=== PATIENT | male | born 1945 | race Caucasian/White ===

== ENCOUNTER 2019-04-15 14:35 | Inpatient (IN) | payer OTHER, MEDICAID ==
[~2019-04-15] VITALS: Ht 154.9 cm; Wt 51.3 kg
--- NOTE | 2019-04-15 15:39 | NUR ---
Admit Note: Received patient via gurney from [facility]. Patient in bed resting. Patient denies pain and discomfort. Breathing is even and unlabored with no distress noted on room air. Patient aphasic nods head only. Vitals stable and charted. Patient oriented to room and call light. Will page Dr. Parikh for admit orders.
[2019-04-15 15:55] VITALS: BP_SYST 155
[2019-04-15] MEDS ORDERED: CARB100T13 PO (16:03)
[2019-04-15] MEDS ORDERED: DOCU250C14 PO (16:03)
[2019-04-15] MEDS ORDERED: PHEN30TA41 PO (16:03)
[2019-04-15] MEDS ORDERED: FERR-69 PO (16:03)
[2019-04-15] MEDS ORDERED: ESCI10TA PO (16:03)
[2019-04-15] MEDS ORDERED: TRAZ-218 PO (16:03)
[2019-04-15 16:06] VITALS: BP_SYST 155
--- NOTE | 2019-04-15 16:10 | NUR ---
Dr. Jack at bedside: Dr. Jack at bedside, patient seen and assessed. Awaiting orders.
--- NOTE | 2019-04-15 16:16 | NUR ---
IV INSERTION: Started on RAC 20 gauge. Successful after 1 attempt. Will observe for any signs of infiltration.
--- NOTE | 2019-04-15 16:46 | NUR ---
ST Danni Randle, called Pretty at [phone] and left message
--- NOTE | 2019-04-15 16:48 | NUR ---
CONSULTATION PAGED/CALLED Reason for Consultation: ALOC Person Who was Notified: CELSA Consulting Physician: DR. Chelsey YEBOAH Cooker Pie Filling Specialty: NEUROLOGIST Ordering Physician: DR. STACK
[2019-04-15] MEDS: NACL 0.9% 1,000 ML IV SCH (17:18)
[2019-04-15 17:23] LABS: BASOPHILS % (AUTO) 0.1 % (0.0-2.0); EOSINOPHILS % (AUTO) 0.3 % (0.0-4.0); HEMATOCRIT 29.8 % (36-54); LYMPHOCYTES # (AUTO) 0.4 K/uL (1.0-5.5); LYMPHOCYTES % (AUTO) 2.5 % (20.5-51.5); MEAN CORPUSCULAR HEMOGLOBIN 31 pg (27-31); MEAN CORPUSCULAR HGB CONC 34 % (32-36); MEAN CORPUSCULAR VOLUME 91 fL (79.0-98.0); MONOCYTES # (AUTO) 0.8 K/uL (0.0-1.0); MONOCYTES % (AUTO) 5.9 % (1.7-9.3); NEUTROPHILS # (AUTO) 12.9 K/uL (1.8-7.7); NEUTROPHILS % (AUTO) 91.2 % (40.0-70.0); PLATELET COUNT (AUTO) 276 K/uL (130-430); RED BLOOD CELL COUNT(AUTO) 3.28 MIL/uL (4.2-6.2); RED CELL DISTRIBUTION WIDTH 15.2 % (9.0-15.0); WHITE BLOOD COUNT (AUTO) 14.2 K/uL (4.8-10.8)
--- NOTE | 2019-04-15 17:35 | NUR ---
[place] Jack for home medication reconciliation. Addendum: 04/15/19 at 1802 by Marleen Trejo RN Repaged Dr. Jack for critical lab result.
[2019-04-15 17:39] LABS: ANION GAP 19 (5-15); CALCIUM 9.3 mg/dL (8.4-11.0); CHLORIDE 100 mmol/L (98-107); GLUCOSE 135 mg/dL (70-99); POTASSIUM 5.6 mmol/L (3.5-5.1); SODIUM SERUM 136 mmol/L (136-145)
[2019-04-15 17:40] LABS: INR 1.1 (0.80-1.20); PROTHROMBIN TIME 11.4 SECS (9.5-12.5)
[2019-04-15 17:44] LABS: ALANINE AMINOTRANSFERASE 150 U/L (12-78); ALBUMIN 2.2 g/dL (3.4-4.8); ASPARTATE AMINOTRANSFERASE 60 U/L (10-37); TOTAL BILIRUBIN 0.6 mg/dL (0.0-1.0)
[2019-04-15 17:57] LABS: CREATININE 9.31 mg/dL (0.55-1.30)
[2019-04-15 17:59] LABS: UREA NITROGEN, BLOOD 201 mg/dL (8-21)
--- NOTE | 2019-04-15 18:12 | NUR ---
CONSULTATION PAGED/CALLED Reason for Consultation: ACUTE RENAL FAILURE Person Who was Notified: VALENTIN Consulting Physician: DR. TONG Sign Language Instructor Specialty: LIP OF SHANK CUTTER Ordering Physician: DR. STACK
[2019-04-15] MEDS ORDERED: SODIUM POLYSTYRENE SULFONATE 15 GM/60 ML UDBTL RC ONE ×2 (18:15→19:00)
--- NOTE | 2019-04-15 18:35 | NUR ---
VALDOVINOS CATH: # 16 FR Valdovinos catheter with 10 cc bulb inserted with use of sterile technique. Bulb inflated with 10 cc sterile water. Immediate return of 0 cc urine noted. Bedside drainage bag placed below level of bladder. Awaiting urine output to collect sample to send to lab. Pt tolerated procedure well.
[2019-04-15] MEDS ORDERED: SODIUM POLYSTYRENE SULFONATE 15 GM/60 ML UDBTL ONE (19:03)
--- NOTE | 2019-04-15 19:05 | NUR ---
Closing Note: Patient in bed resting. No signs of pain or discomfort. Breathing is even and unlabored with no distress noted. IV patent and intact running IVF per MD orders, no signs of infiltration noted. Jasso catheter patent and intact. Seizure precautions in place. Safety precautions in place; bed in lowest position, wheels locked, side rails x3, bed alarm activated and call light within reach. All needs met. Will endorse plan of care to NOC, nurse.
[2019-04-15] MEDS ORDERED: NS 500 ML IV SCH (19:15)
--- NOTE | 2019-04-15 19:30 | NUR ---
OPENING NOTE Late entry d/t patient care. Patient is resting in bed w/ eyes closed, no s/sx of distress noted. IV to RAC has IVF, bolus, infusing as oredered. Jasso catheter is clamped, awaiting collection of urine, will be released once collect sample. Patilent is on air mattress, side rails up 3x, seizures pads on two rails. Bed is locked to lowest position, bed alarm on and call light w/in reach.
[2019-04-15 20:00] VITALS: BP_SYST 128
--- NOTE | 2019-04-15 20:50 | NUR ---
urine sample Collected urine sample, will send to lab.
[2019-04-15 21:05] LABS: BILIRUBIN,URINE NEGATIVE (NEGATIVE); BLOOD, URINE 3+ (NEGATIVE); CLARITY/URINE SL CLOUDY (CLEAR); COLOR,URINE YELLOW (YELLOW); GLUCOSE,URINE NEGATIVE (NEGATIVE); KETONES,URINE NEGATIVE (NEGATIVE); LEUKOCYTE ESTERASE ,URINE 2+ (NEGATIVE); NITRITE, URINE POSITIVE (NEGATIVE); PH,URINE 6.5 (5.0-8.0); PROTEIN URINE 2+ (NEGATIVE); UROBILINOGEN,URINE 0.2 (0.2-1.0)
[2019-04-15] MEDS: traZODone HCL 50 MG TABLET (DESYREL) PO SCH (21:10)
--- NOTE | 2019-04-15 21:10 | NUR ---
Bowel movement Patient had a bowel movement, dark loose stool was noted. Patient cleaned and repositioned.
[2019-04-15 21:15] LABS: BACTERIA,URINE MODERATE /HPF (None Seen); RBC,URINE 20-50 /HPF (0-3); WBC,URINE 50-80 /HPF (0-3)
[2019-04-15 21:16] LABS: MUCUS,URINE 1+ /LPF (None Seen); URINE AMORPHOUS URATE 3+ /HPF (None Seen)
--- NOTE | 2019-04-15 21:16 | NUR ---
Medication Due medication given; patient educated, he is nonverbal and nodded his head in all directions, not a clear indication of understanding. The tablets were crushed and mixed with applesauce and patient swallowed.
[2019-04-15] MEDS ORDERED: cefTRIAXone 1 GM IVPB PREMIX 50 ML IV ONE (21:31)
[2019-04-15] MEDS: cefTRIAXone 1 GM in D5W 50 ML IV SCH (22:29)
--- NOTE | 2019-04-15 22:37 | NUR ---
Antibiotic Administered antibiotic, infusing well, patient tolerating. No changes to patient's skin noted. Will monitor.
--- NOTE | 2019-04-16 00:10 | NUR ---
Rounds Patient is resting w/eyes closed, no sign of distress noted. IVF infusing well. Safety and seizure precautions in place.
[2019-04-16 00:50] VITALS: BP_SYST 145
--- NOTE | 2019-04-16 00:51 | NUR ---
Dr. Jack Incoming call from Dr. Jack, he inquired about head CT, he asked to call radiology and complete. He said to call back if positive results noted. I reviewed the chart and the preliminary result for CT head indicates atrophy. Did not call Dr. Jack.
--- NOTE | 2019-04-16 02:32 | NUR ---
Rounds - BM Patient had small amount of loose, dark bowel movement. He was cleaned and provided with new pad and repositioned.
--- NOTE | 2019-04-16 04:16 | NUR ---
ROUNDS Patient is resting w/ eyes closed. Symmetrical rise and fall of chest, nonlabored breathing. IVF infusing as ordered. Safety and seizure precautions in place. Will monitor.
[2019-04-16] MEDS: NACL 0.9% 1,000 ML IV SCH ×3 (05:15→22:55)
--- NOTE | 2019-04-16 05:18 | NUR ---
IV fluids Hung new bag of fluids to replace empty bag. Infusing well at 100 ml/hr as ordered.
--- NOTE | 2019-04-16 06:32 | NUR ---
CLOSING NOTES Patient is resting in comfortable position. X-ray tech was in for x-ray, patient tolerated. Safety and seizure precautions maintained. Air mattress on, SCD's on and hardin bag to gravity. IVF infusing as ordered. Needs met throughout shift, will endorse to oncoming nurse.
[2019-04-16 07:01] LABS: BASOPHILS % (AUTO) 0.1 % (0.0-2.0); EOSINOPHILS % (AUTO) 0.2 % (0.0-4.0); HEMATOCRIT 28.6 % (36-54); HEMOGLOBIN 9.6 g/dL (14.0-18.0); LYMPHOCYTES # (AUTO) 0.4 K/uL (1.0-5.5); LYMPHOCYTES % (AUTO) 2.4 % (20.5-51.5); MEAN CORPUSCULAR HEMOGLOBIN 31 pg (27-31); MEAN CORPUSCULAR HGB CONC 34 % (32-36); MEAN CORPUSCULAR VOLUME 91 fL (79.0-98.0); MONOCYTES # (AUTO) 1.1 K/uL (0.0-1.0); MONOCYTES % (AUTO) 7.1 % (1.7-9.3); NEUTROPHILS # (AUTO) 13.7 K/uL (1.8-7.7); NEUTROPHILS % (AUTO) 90.2 % (40.0-70.0); PLATELET COUNT (AUTO) 269 K/uL (130-430); RED BLOOD CELL COUNT(AUTO) 3.14 MIL/uL (4.2-6.2); RED CELL DISTRIBUTION WIDTH 15.1 % (9.0-15.0); WHITE BLOOD COUNT (AUTO) 15.2 K/uL (4.8-10.8)
[2019-04-16 07:23] LABS: ANION GAP 19 (5-15); CALCIUM 8.8 mg/dL (8.4-11.0); CARBAMAZEPINE (TEGRETOL) 9 ug/mL (4-12); CHLORIDE 104 mmol/L (98-107); GLUCOSE 138 mg/dL (70-99); POTASSIUM 5.5 mmol/L (3.5-5.1); SODIUM SERUM 137 mmol/L (136-145)
--- NOTE | 2019-04-16 07:25 | NUR ---
Opening note Patient resting in bed at this time, A/O x1, patient is nonverbal but nods to indicate understanding. Iv site in place, intact, and infusing as ordered. No complaints of pain. Jasso catheter draining to gravity, yellow urine. On seizure, safety,aspiration precautions, reinforced. Padded side rails in place, bed in lowest position, 3 side rails up, call light within reach. On ROSS mattress, heels offloaded using pillows. Will continue to monitor.
[2019-04-16 07:32] LABS: UREA NITROGEN, BLOOD 202 mg/dL (8-21)
[2019-04-16 07:33] LABS: CREATININE 9.19 mg/dL (0.55-1.30)
--- NOTE | 2019-04-16 07:35 | NUR ---
Critical value Critical value BUN, and creatinine, paged Dr. Jack.
--- NOTE | 2019-04-16 07:45 | NUR ---
Dr. Jack, Dr. Jack called back, patient noted with 1 episode of vomiting. New order for Oh noted and carried out. Dr. Jack stated to call Dr. Miller for BUN and creatinine results.
--- NOTE | 2019-04-16 08:00 | NUR ---
Dr. Miller, Dr. Miller called back, consult for Dr. Romero for placement of ricci cath, noted and carried out.
[2019-04-16 08:15] VITALS: BP_SYST 154
[2019-04-16] MEDS: DOCUSATE SODIUM 250 MG CAPSULE PO SCH (09:37)
[2019-04-16] MEDS: PHENobarbital 30 MG TABLET PO SCH (09:37)
[2019-04-16] MEDS: CITALOPRAM HYDROBROMIDE 20 MG TABLET PO SCH (09:37)
--- NOTE | 2019-04-16 09:50 | NUR ---
Medications Patient resting in bed, no complaints of pain. Patient NPO awaiting ultrasound, No nausea, no vomiting noted. Patient tolerated all PO medications well, no aspiration noted.
--- NOTE | 2019-04-16 09:56 | NUR ---
Surgery consult called: for Dr. Romero, regarding placement of ricci cath, ordered by Dr. Miller, spoke with Bianka.
[2019-04-16] MEDS ORDERED: ONDANSETRON HCL 4 MG/2 ML VIAL IVP PRN (10:00)
--- NOTE | 2019-04-16 10:51 | NUR ---
Nutrition Update Gabriel Scale 13 noted. Pt admitted for ALOC, dehydration. Diet: pureed, renal BMI: 21.4 kg/m2 RD to follow per nutrition care standards.
[2019-04-16 11:27] VITALS: BP_SYST 143
[2019-04-16] MEDS ORDERED: HEPARIN SODIUM,PORCINE 5000 UNITS/ML VIAL MC ONE ×3 (12:15→21:15)
--- NOTE | 2019-04-16 12:30 | NUR ---
Dr. Mauro Wade assessing patient at bedside. Patient is nonverbal, No complaints of pain at this time. Iv site patent and intact.
[2019-04-16] MEDS: LACTULOSE 20 GM/30 ML UDC PO ONE ×2 (14:30→15:26)
[2019-04-16] MEDS ORDERED: BISACODYL 10 MG/SUPPOSITORY RC ONE (14:30)
--- NOTE | 2019-04-16 14:33 | NUR ---
ID consult called: for Dr. Nixon, regarding sepsis, ordered by Dr. Jack, spoke with Tonya.
--- NOTE | 2019-04-16 14:35 | NUR ---
Ortho consult called: for Dr. Villarreal, regarding humoral fracture, ordered by Dr. Jack, spoke with Maggi.
[2019-04-16 15:24] VITALS: BP_SYST 139
[2019-04-16] MEDS ORDERED: VANCOMYCIN HCL 750 MG in NS 250 ML IV ONE (15:30)
--- NOTE | 2019-04-16 15:30 | NUR ---
Consent Patient resting in bed, no complaints of pain. Dr. Romero explained procedure over the phone to family. Sister gave consent over phone verified by Charissa FERNANDEZ.
--- NOTE | 2019-04-16 15:46 | NUR ---
S.T. SWALLOW EVAL SWALLOW EVAL COMPLETED. PT PRESENTS W/ SEV ORAL DYSPHAGIA W/ INCONSISTENT TRANSFER OF BOLUS. AFTER SWALLOWING THE INITIAL TWO P.O. TRIALS, PT SUBSEQUENTLY ONLY HELD BOLUS IN MOUTH WITHOUT SWALLOWING. EVENTUALLY HE WAS WILLING/ABLE TO SPIT OUT BOLUS. PT IS HIGH RISK FOR ASPIRATION, MALNUTRITION, AND DEHYDRATION. REC: NPO - ALTERNATIVE METHOD FOR FEEDING. NURSES ADRIA AND FROYLAN NOTIFIED. [id number] CN [id number] CN [id number] CN NOMS LEVEL 2
--- NOTE | 2019-04-16 16:01 | NUR ---
Placement of hemodialysis access. Dr. Romero at bedside, performing the procedure. Patient in stable condition at this time.
--- NOTE | 2019-04-16 16:30 | NUR ---
paged Dr. Jack New order for medications, Patient is NPO, unable to give PO medications. Awaiting call back.
--- NOTE | 2019-04-16 17:10 | NUR ---
Rounds Patient resting in bed, in stable condition. Patient is NPO per speech therapist recommendation, patient did not pass speech eval, evening PO medication not given due to high risk for aspiration.
--- NOTE | 2019-04-16 18:35 | NUR ---
Closing note Patient resting in bed at this time, Iv site in place, intact, and infusing as ordered. Right subclavian hemodialysis access in place.No complaints of pain. Jasso catheter draining to gravity, john colored urine. On seizure, safety,aspiration precautions, reinforced. Padded side rails in place, bed in lowest position, 3 side rails up, call light within reach. On ROSS mattress, heels offloaded using pillows. All needs met, patient in stable condition.
--- NOTE | 2019-04-16 19:29 | NUR ---
Opening note Received patient resting in bed, no sign of distress noted. IVF to RAC has IVF infusing as ordered. Seizure pads on. Patient is on air mattress, SCD's on, hardin catheter bag to gravity. HD is in progress. Bed is locked to lowest position, bed alarm on, side rails up 3x and call light w/in reach. Updated board.
--- NOTE | 2019-04-16 19:32 | NUR ---
HEMO DIALYSIS HD is in progress, dialysis nurse is at bedside with patient.
[2019-04-16 20:00] VITALS: BP_SYST 148
[2019-04-16] MEDS: cefTRIAXone 1 GM in D5W 50 ML IV SCH (20:19)
[2019-04-16] MEDS ORDERED: HEPARIN SODIUM, PORCINE 10,000 UNITS/ 10 ML VIAL MC ONE (20:30)
[2019-04-16] MEDS ORDERED: HEPARIN SODIUM,PORCINE 5000 UNITS/ML VIAL MC SCH (21:30)
--- NOTE | 2019-04-16 21:55 | NUR ---
HD complete Hemodialysis is complete. Dialysis nurse, Mary reported no fluid out per MD order. VSS; B/P 141/79, HR 91. Dialysis nurse administered 2 vials of 5,000 units of Heparin, one vial to each port of Berry Catheter. Will monitor.
--- NOTE | 2019-04-16 22:43 | NUR ---
[place] Jack, senior information security analyst for Dr. Parikh s/w Joana.
--- NOTE | 2019-04-16 22:57 | NUR ---
Dr. Jack Spoke w/ Dr. Jack and notified patient failed swallow eval and the speech therapist has recommendation of NPO status. Dr. Jack said ok to give medications, crushed with apple sauce and also ordered a GI consult w/ Dr. Clifton for possible GI placement.
--- NOTE | 2019-04-16 23:03 | NUR ---
MEDICATIONS-OK TO GIVE Per Dr. Jack, it is ok to give PO medications, crushed - mixed with applesauce.
[2019-04-16] MEDS: traZODone HCL 50 MG TABLET (DESYREL) PO SCH (23:19)
--- NOTE | 2019-04-16 23:34 | NUR ---
Medication Patient was given two PO medications, crushed and mixed with applesauce. Patient tolerated and swallowed.
--- NOTE | 2019-04-16 23:45 | NUR ---
Consultation Paged Reason for consultation: Possible GT Placement Was consult called: Y Person who was notified: Lilibeth Consulting Physician: Dr. Clifton Director Engineering Ordering Physician: Dr. Jack.
--- NOTE | 2019-04-17 00:04 | NUR ---
Elevated B/P B/P is 169/88 and HR 97, patient doen't have PRN blood pressure medication. Paged Dr. Jack for medication orders.
--- NOTE | 2019-04-17 00:05 | NUR ---
PAGED PAGED DOCTOR SEDA WHO IS EDUCATIONAL COORDINATOR FOR [facility]
--- NOTE | 2019-04-17 00:24 | NUR ---
2ND PAGED PAGED DOCTOR SEDA WHO IS BIOPHYSICS SCIENTIST FOR [facility]. FOR ORDERS
--- NOTE | 2019-04-17 00:33 | NUR ---
Dr. Jack Spoke with Dr. Jack and updated on elevated BP. He provided order of Clonidine 0.1mg PO Q6h prn SBP > 160, crushed - w/ applesauce. Read back order and entered in [employer].
[2019-04-17] MEDS: cloNIDine HCL 0.1 MG TABLET PO PRN ×2 (00:44→06:21)
[2019-04-17 01:12] VITALS: BP_SYST 168
--- NOTE | 2019-04-17 01:16 | NUR ---
Temp 99.0 Patient's temperature is 99.0 cooling measures given. Will follow up. Seizure and aspiration precautions in place.
--- NOTE | 2019-04-17 02:30 | NUR ---
temp Temp reassess was 98.2. Patient had bowel movement, he was cleaned and repositioned for comfort. Safety, seizure, and aspiration precautions in place. Will monitor.
--- NOTE | 2019-04-17 04:15 | NUR ---
Rounds Patient was given bed bath and repositioned for comfort. Safety, seizure, aspiration precautions maintained.
[2019-04-17] MEDS: NACL 0.9% 1,000 ML IV SCH ×2 (05:28→15:50)
--- NOTE | 2019-04-17 05:36 | NUR ---
IVF IVF bag is empty and a new bag was hung, infusing as ordered at 100 ml/hr.
[2019-04-17 06:51] LABS: BASOPHILS % (AUTO) 0.1 % (0.0-2.0); EOSINOPHILS # (AUTO) 0.1 K/uL (0.0-0.4); EOSINOPHILS % (AUTO) 0.9 % (0.0-4.0); HEMOGLOBIN 7.6 g/dL (14.0-18.0); LYMPHOCYTES # (AUTO) 0.3 K/uL (1.0-5.5); MEAN CORPUSCULAR HEMOGLOBIN 31 pg (27-31); MEAN CORPUSCULAR HGB CONC 35 % (32-36); MEAN CORPUSCULAR VOLUME 90 fL (79.0-98.0); MONOCYTES # (AUTO) 0.4 K/uL (0.0-1.0); MONOCYTES % (AUTO) 3.5 % (1.7-9.3); NEUTROPHILS # (AUTO) 9.8 K/uL (1.8-7.7); NEUTROPHILS % (AUTO) 92.5 % (40.0-70.0); PLATELET COUNT (AUTO) 265 K/uL (130-430); RED BLOOD CELL COUNT(AUTO) 2.44 MIL/uL (4.2-6.2); RED CELL DISTRIBUTION WIDTH 14.4 % (9.0-15.0); WHITE BLOOD COUNT (AUTO) 10.6 K/uL (4.8-10.8)
[2019-04-17 07:07] LABS: ALANINE AMINOTRANSFERASE 78 U/L (12-78); ALBUMIN 1.5 g/dL (3.4-4.8); ANION GAP 10 (5-15); ASPARTATE AMINOTRANSFERASE 27 U/L (10-37); CALCIUM 7.6 mg/dL (8.4-11.0); CHLORIDE 106 mmol/L (98-107); CREATININE 5.33 mg/dL (0.55-1.30); GLUCOSE 102 mg/dL (70-99); POTASSIUM 3.6 mmol/L (3.5-5.1); SODIUM SERUM 140 mmol/L (136-145); TOTAL BILIRUBIN 0.5 mg/dL (0.0-1.0); VANCOMYCIN,RANDOM 11.5 ug/mL
[2019-04-17 07:23] LABS: UREA NITROGEN, BLOOD 108 mg/dL (8-21)
[2019-04-17 07:37] LABS: HEMATOCRIT 21.9 % (36-54)
--- NOTE | 2019-04-17 07:40 | NUR ---
closing note Patient resting in bed, no sign of distress noted. IVF to RAC has IVF infusing as ordered. Seizure pads on. Patient is on air mattress, SCD's on, hardin catheter bag to gravity. Bed is locked to lowest position, bed alarm on, side rails up 3x and call light w/in reach. Endorsed report to JIM Barry
[2019-04-17 08:00] VITALS: BP_SYST 156
--- NOTE | 2019-04-17 08:00 | NUR ---
initial notes rec patient asleep arousable to stimuli. ivf infusing well on the r ac. no infiltration noted. resp easy and unlabored. no sob noted. bed to the lowest position and side rails up and locked. call light within reached and pt close to the nurses station. will continue to monitor patient.
[2019-04-17] MEDS: PHENobarbital 30 MG TABLET PO SCH (09:00)
[2019-04-17] MEDS: DOCUSATE SODIUM 250 MG CAPSULE PO SCH (09:00)
[2019-04-17] MEDS: CITALOPRAM HYDROBROMIDE 20 MG TABLET PO SCH (09:00)
[2019-04-17] MEDS: LACTULOSE 20 GM/30 ML UDC PO SCH (09:00)
--- NOTE | 2019-04-17 10:30 | NUR ---
rounds dr dey was notified re bun and creat and with order to have dialysis
--- NOTE | 2019-04-17 12:00 | NUR ---
rounds turned repsotioned for comfort. no sob noted.
[2019-04-17 12:47] VITALS: BP_SYST 144
--- NOTE | 2019-04-17 13:21 | NUR ---
Dietitian Recommendations * Consider swallow evaluation and advance diet if/when medically appropriate LP, RD Please refer to Nutrition Assessment for details.
--- NOTE | 2019-04-17 13:44 | NUR ---
CONSULT REASON FOR CONSULT: GALLSTONE PANCREATITIS PERSON I SPOKE WITH: KODY LEFT A MESSAGE WITH THE DOCTOR. CONSULTING PHYSICIAN: DR. SEGOVIA CLIENT SOLUTIONS SPECIALIST PHONE NUMBER: [phone] ORDERING PHYSICIAN: DR. HERMOSILLO SPOKE WITH DR SEGOVIA. HE SAID HE IS GOING INTO SURGERY BUT HE WILL HANDLE HIS SUSPENSION.
--- NOTE | 2019-04-17 14:30 | NUR ---
DC Planning: s/w dr. Miller, Renal, he will accept the pt upon discharge to continuing HD at [facility]. CM/DCP may call [facility] to arrange the chair time as needed.
--- NOTE | 2019-04-17 15:00 | NUR ---
rounds dialysis was stared at bedside . no sob noted. bed to the lowest position.
--- NOTE | 2019-04-17 15:35 | NUR ---
rounds blood transfusion state by dialysia nurse at bedside. was checked/ verified with pee rn at bedside. resting comfortably.
--- NOTE | 2019-04-17 15:47 | NUR ---
Discharge Planning: DCP rfaxed referral to [facility] (f [phone] p [phone]) Rohith will put in [facility]'s box. DCP to follow up
[2019-04-17] MEDS ORDERED: VANCOMYCIN HCL 750 MG in NS 250 ML IV ONE (16:00)
--- NOTE | 2019-04-17 16:00 | NUR ---
rounds notified dr li that pt is npo and stated will take care of it.
[2019-04-17 16:46] VITALS: BP_SYST 152
--- NOTE | 2019-04-17 18:33 | NUR ---
closing notes resting comfortably. no sob noted. bed to the lowest position and side rails up and locked. pt is close to the nurses station.
--- NOTE | 2019-04-17 19:15 | NUR ---
Pt was received in bed awake, but non-verbal. IVF of NS is infusing well in RAC at 100ml/hr without any signs of infiltration. RIJ dressing is dry and intact with the catheters intact. No acute distress or seizure activity noted. Fall, seizure and safety precautions are in place.
[2019-04-17 20:00] VITALS: BP_SYST 157
[2019-04-17] MEDS: traZODone HCL 50 MG TABLET (DESYREL) PO SCH (21:00)
--- NOTE | 2019-04-17 21:00 | NUR ---
IVF infusing well in RAC. No c/o pain or discomfort. Call light is with pt and bed alarm is on.
[2019-04-17] MEDS: cefTRIAXone 1 GM in D5W 50 ML IV SCH (21:06)
--- NOTE | 2019-04-17 23:00 | NUR ---
No acute distress noted at this time. IVF is infusing well. Fall, seizure and safety precautions are in place.
--- NOTE | 2019-04-18 01:00 | NUR ---
IVF is infusing well in RAC. Call light is with pt and bed alarm is on. Pt is sleeping comfortably in bed and no respiratory distress or seizure activity `noted.
--- NOTE | 2019-04-18 03:00 | NUR ---
Pt is sleeping without any distress noted. IVF is infusing well in RAC. Call light is with pt and bed alarm is on.
[2019-04-18] MEDS: NACL 0.9% 1,000 ML IV SCH ×2 (04:03→14:08)
--- NOTE | 2019-04-18 05:00 | NUR ---
Pt is resting comfortably in bed. IVF is infusing well in RAC. Call light is with pt and bed alarm is on.
[2019-04-18 05:22] VITALS: BP_SYST 168
--- NOTE | 2019-04-18 06:50 | NUR ---
Pt is awake and resting comfortably in bed. IVF is infusing well in RAC. Call light is with pt and bed alarm is on. Will endorse to day shift nurse.
--- NOTE | 2019-04-18 08:00 | NUR ---
initial notes rec patient awake opens eyes but non verbally responsive. resp easy and unlabored bed to the lowest position and side rails up and locked. call light within reached. la rm sling in place. bed close to the nurses station.
[2019-04-18] MEDS: LACTULOSE 20 GM/30 ML UDC PO SCH (09:00)
[2019-04-18] MEDS: CITALOPRAM HYDROBROMIDE 20 MG TABLET PO SCH (09:00)
[2019-04-18] MEDS: PHENobarbital 30 MG TABLET PO SCH (09:00)
[2019-04-18] MEDS: DOCUSATE SODIUM 250 MG CAPSULE PO SCH (09:00)
--- NOTE | 2019-04-18 10:00 | NUR ---
rounds seen by dr brady and withorder in am for egd /peg/ family called after dr brady explained to daughter over the phone.
[2019-04-18 12:19] VITALS: BP_SYST 161
[2019-04-18 14:09] LABS: HEPATITIS A AB, IgM Negative (Negative); HEPATITIS B CORE AB, IgM Negative (Negative); HEPATITIS B SURFACE AG Negative (Negative)
[2019-04-18] MEDS: VANCOMYCIN HCL 750 MG in NS 250 ML IV SCH (15:56)
--- NOTE | 2019-04-18 16:00 | NUR ---
rounds family came and visited patient. updated re patient procedure in am.
[2019-04-18 16:02] VITALS: BP_SYST 166
--- NOTE | 2019-04-18 19:00 | NUR ---
closing notes seen by dr li and made aware of the gt placement in am. turned repositioned for comfort. bed to the lowest position and side rails up and locked.
--- NOTE | 2019-04-18 19:15 | NUR ---
OPENING NOTES Late entry due to patient care. Bedside report received from dayshift nurse. Patient received lying in bed, watching TV, no s/s of acute distress noted. Breathing even and unlabored. IVF infusing well, IV site patent, no signs of infiltration or infection noted. Jasso attached, secured, and draining by gravity. HOB slightly raised. SCDs attached and operating. NPO cone present at bedside. Call light with patient. Bed alarm on. Bed is locked and at lowest position. Will continue to monitor.
[2019-04-18] MEDS: traZODone HCL 50 MG TABLET (DESYREL) PO SCH (21:00)
--- NOTE | 2019-04-18 21:00 | NUR ---
ROUNDS Patient in bed, watching TV. No signs of discomfort noted. Chest rise and fall even bilaterally. IVF infusing well. Jasso attached, secured, and draining by gravity. Call light with patient. Seizure pads attached to side rails. Bed alarm on. Will continue to monitor.
[2019-04-18] MEDS: cefTRIAXone 1 GM in D5W 50 ML IV SCH (22:01)
--- NOTE | 2019-04-18 23:00 | NUR ---
ROUNDS Patient in bed sleeping at this time. No s/s of acute distress noted. Breathing even and unlabored. IVF infusing well. Call light with patient. Bed alarm on. Will continue to monitor.
[2019-04-18 23:07] VITALS: BP_SYST 158
[2019-04-18 23:30] VITALS: BP_SYST 176
--- NOTE | 2019-04-18 23:30 | NUR ---
HIGH BP Blood pressure at 176/85. NO signs of discomfort noted. No SOB. Chest rise and fall even bilaterally. Charge nurse made aware. Will continue to monitor and reassess.
[2019-04-19] VITALS (8 sets, daily range): BP systolic 135–181
--- NOTE | 2019-04-19 01:00 | NUR ---
ROUNDS Patient in bed sleeping at this time. No signs of discomfort noted. Chest rise and fall even bilaterally. Call light with patient. Bed alarm on. Will continue to monitor.
[2019-04-19 01:14] LABS: TOTAL IRON BIND. CAPACITY 125 ug/dL (250-450)
--- NOTE | 2019-04-19 01:30 | NUR ---
REASSESSED BP BP reassessed at this time. Patient in bed, resting, no s/s of acute distress noted. Breathing even and unlabored. IVF infusing well. HOB raised. All needs met. Will continue to monitor.
--- NOTE | 2019-04-19 03:30 | NUR ---
ROUNDS Patient in bed sleeping. No s/s of acute distress noted. Breathing even and unlabored. IVF infusing well. Call light with patient. Bed alarm on. Will continue to monitor.
[2019-04-19] MEDS: hydrALAZINE HCL 20 MG/ML VIAL IVP PRN ×2 (04:43→22:32)
[2019-04-19] MEDS: NACL 0.9% 1,000 ML IV SCH ×3 (04:47→20:55)
--- NOTE | 2019-04-19 05:30 | NUR ---
ROUNDS Patient in bed awake, watching TV. no signs of discomfort noted. Chest rise and fall even bilaterally. IVF infusing well. Call light with patient, Bed alarm on. Will continue to monitor.
--- NOTE | 2019-04-19 06:48 | NUR ---
CLOSING NOTES Patient in bed awake, watching TV, no s/s of acute distress noted. Breathing even and unlabored. HOB raised, seizure pads attached. IVF infusing well, IV site patent, no signs of infiltration or infection noted. Jasso attached, secured, and draining by gravity. All needs met throughout shift. Fall and safety precautions maintained throughout shift. Will continue to monitor until patient care is endorsed to oncoming dayshift nurse.
[2019-04-19] MEDS: MIDAZOLAM HCL 5 MG/5 ML VIAL ONE ×5 (06:58→08:10)
[2019-04-19] MEDS: fentaNYL CITRATE/PF 100 MCG/2 ML AMP ONE ×3 (06:59→08:04)
[2019-04-19] MEDS ORDERED: BENZOCAINE 20% 0.5mL UD SPRAY MM ONE (06:59)
[2019-04-19 07:06] LABS: ANION GAP 20 (5-15); CALCIUM 7.9 mg/dL (8.4-11.0); CHLORIDE 109 mmol/L (98-107); CREATININE 4.18 mg/dL (0.55-1.30); GLUCOSE 90 mg/dL (70-99); POTASSIUM 3.1 mmol/L (3.5-5.1); SODIUM SERUM 148 mmol/L (136-145); UREA NITROGEN, BLOOD 71 mg/dL (8-21)
[2019-04-19 07:09] LABS: BASOPHILS % (AUTO) 0.2 % (0.0-2.0); EOSINOPHILS # (AUTO) 0.1 K/uL (0.0-0.4); HEMOGLOBIN 10.2 g/dL (14.0-18.0); LYMPHOCYTES # (AUTO) 0.6 K/uL (1.0-5.5); LYMPHOCYTES % (AUTO) 6.1 % (20.5-51.5); MEAN CORPUSCULAR HEMOGLOBIN 30 pg (27-31); MEAN CORPUSCULAR HGB CONC 34 % (32-36); MEAN CORPUSCULAR VOLUME 89 fL (79.0-98.0); MONOCYTES # (AUTO) 0.5 K/uL (0.0-1.0); MONOCYTES % (AUTO) 4.7 % (1.7-9.3); NEUTROPHILS # (AUTO) 8.8 K/uL (1.8-7.7); PLATELET COUNT (AUTO) 312 K/uL (130-430); RED BLOOD CELL COUNT(AUTO) 3.36 MIL/uL (4.2-6.2); WHITE BLOOD COUNT (AUTO) 9.9 K/uL (4.8-10.8)
--- NOTE | 2019-04-19 08:55 | NUR ---
PATIENT BACK FROM GI received report from OR nurse at bedside, per OR nurse patient's blood pressure was running high with systolic in 190-200s, initial blood pressure is 181/71, will re check again, patient is awake and able to follow commands, no acute distress or pain is noted, breathing is even and unlabored on room air, IVF infusing as ordered, will continue to monitor, safety precautions in place, call light within reach, seizure precautions in place.
[2019-04-19] MEDS: CITALOPRAM HYDROBROMIDE 20 MG TABLET PO SCH (09:00)
[2019-04-19] MEDS: LACTULOSE 20 GM/30 ML UDC PO SCH (09:00)
[2019-04-19] MEDS: PHENobarbital 30 MG TABLET PO SCH (09:00)
[2019-04-19] MEDS: DOCUSATE SODIUM 250 MG CAPSULE PO SCH (09:00)
--- NOTE | 2019-04-19 10:15 | NUR ---
SPOKE TO DR. TONG per , he does not want patient to receive dialysis today due to decrease in labs without dialysis, stated he will check labs tomorrow and see if patient will need dialysis.
--- NOTE | 2019-04-19 10:20 | NUR ---
NOTES patient is resting in bed watching tv, no acute distress or pain is noted at this time, breathing is even and unlabored on room air, IVF infusing as ordered, blood pressure is 147/108 at this time, will re check, will continue to monitor, safety precautions in place, seizure precautions in place, call light within reach.
--- NOTE | 2019-04-19 10:48 | NUR ---
Wound Evaluation: Wound Consult ordered for Low Gabriel Score. Patient evaluated for a low Gabriel score of 12. Patient was awake, alert, non-verbal, and received in a [place] Bed with an mattress. Patient needs to be turned in bed. Recommend encourage and assist patient with repositioning patient side to side only every 2 hours with pillow support. Elevate, off-load and float bilateral heels with pillows. Offload pressure areas with pillows for pressure re-distribution. Perform skin care and monitor skin integrity Q shift. Use moisture barrier cream on moisture susceptible areas QID and PRN for soiling. Maintain patient on a low air-loss mattress. Skin assessment: 1. Sacral-Coccygeal area: Scar tissue, present on admission. Recommend: Cleanse involved area with mild soap and water. Pat dry. Apply moisture barrier cream to involved area. Perform site care 4 times a day, and as needed for soiling. Do not place patient in supine position at any time. 2. Bilateral Lower Extremities: Multiple scabs, present on admission. Recommend: No dressings needed. Continue to monitor sites every shift. Contact wound care nurse if sites open, drain or worsen.
--- NOTE | 2019-04-19 12:00 | NUR ---
Nutrition F/U RD reviewed pt's current EMR record including diet Hx, physician notes, nursing notes, pertinent labs/meds/procedures, care trends, and care activity. Current Diet Order: NPO x2 days Subjective Info: Pt was seen for swallow eval on 04/16/19; ST rec was for NPO -- alternative method for feeding. Pt received GT placement this morning by Dr. Vyas, who recommended dietary input for TF. RD rec for Nepro TF formula d/t pt's recent Hx of dialysis, and this formula is also made with Carbsteady (carbohydrate blend designed to help minimize blood sugar spikes). Pt's wt was taken by nursing staff today: 120 lb (04/19/19). Nutrition Assessment wt from 04/17/19: 114 lb. Note difference of 6 lb -- unsure of reliability. Current % PO N/A Estimated Energy Expenditure (kcals/day) 8434-8673 kcal/day (30-35 kcal/kg CBW for chronic Dz, wound healing) Estimated Protein Required (g/day) 62-73 gm/day (1.2-1.4 gm/kg CBW for wound healing, CKD/dialysis) Estimated Fluid Required (l/day) Per physician (CKD) Problem/Etiology/Signs/Symptoms Inadequate nutritional needs related to increased metabolic demands as evidenced by NPO status and inability to meet optimal nutritional requirements. *improving w/ new PEG placement and upcoming nutrition support Altered nutrition-related labs related to renal dysfunction as evidenced by abnormal BUN and CRE lab values. *improving renal labs w/ dialysis Expected Outcomes/Goals - Monitor advancement of diet, appetite, and PO intakes w/ goal of pt meeting at least 75% of estimated nutritional needs, labs trending WNL, normal GI function, and skin integrity/wt maintenance Dietitian Recommendations * Recommend Nepro at 40 ml/hr, Free Water Flush: 50 ml Q6h via GT Provides: 1728 kcal/day, 78 gm protein/day, and 898 ml free water/day Meets: 95% of upper end of estimated caloric needs and 107% of upper end of estimated protein needs Follow Up High Risk: F/U in 2-3 days
--- NOTE | 2019-04-19 12:05 | NUR ---
Dietitian Recommendations * Recommend Nepro at 40 ml/hr, Free Water Flush: 50 ml Q6h via GT Provides: 1728 kcal/day, 78 gm protein/day, and 898 ml free water/day Meets: 95% of upper end of estimated caloric needs and 107% of upper end of estimated protein needs LP, RD Pleas refer to Nutrition F/U for details.
--- NOTE | 2019-04-19 12:08 | NUR ---
NOTES blood pressure is now 135/97, no acute distress or pain is noted, breathing is even and unlabored on room air, IVF infusing as ordered, will continue to monitor, safety precautions in place, seizure precautions in place, call light within reach.
--- NOTE | 2019-04-19 13:30 | NUR ---
TUBEFEEDING STARTED NEPRO starte at 10ml/hr will gradually increase and monitor for residual, patient tolerating feeding well at the moment, no signs of aspiration or n/v, will continue to monitor.
--- NOTE | 2019-04-19 15:00 | NUR ---
TUBEFEEDING RATE INCREASED to 20ml/hr, patient tolerating feeding well, no residual, no signs of aspiration or n/v, will continue to monitor, safety precautions in place, seizure precautions in place, call light within reach.
[2019-04-19] MEDS: VANCOMYCIN HCL 750 MG in NS 250 ML IV SCH (16:28)
--- NOTE | 2019-04-19 17:05 | NUR ---
TUBEFEEDING goal rate of 40ml/hr reached, no aspiration or n/v noted, no residual, patient tolerating tube feeding well, no acute distress or pain noted at this time, breathing is even and unlabored on room air, IVF infusing as ordered, will continue to monitor, safety precautions in place, seizure precautions in place, call light within reach.
[2019-04-19] MEDS: cefTRIAXone 1 GM in D5W 50 ML IV SCH ×2 (17:50→18:46)
--- NOTE | 2019-04-19 18:49 | NUR ---
CLOSING NOTE patient resting in bed watching tv, no acute distress or pain is noted, IVF infusing as ordered, tubefeeding running as ordered with no signs of aspiration or n/v, all needs were met throughout shift, will endorse report to oncoming nurse, safety precautions in place, seizure precautions in place, call light within reach.
--- NOTE | 2019-04-19 19:47 | NUR ---
Opening notes Received report. Patient resting comfortably in bed. No signs of distress noted. Breathing even and unlabored. IV patent and intact, infusing fluids. Tubefeeding infusing @ 40 ml/hr. Call light with the patient. Safety precautions in place.
[2019-04-19] MEDS: traZODone HCL 50 MG TABLET (DESYREL) PO SCH (22:28)
--- NOTE | 2019-04-19 22:30 | NUR ---
Medications given via g-tube. 5 ml residual noted. G-tube flushes easily. Educated the patient the action and side effects of medications. Patient tolerated well. No signs of allergic reaction noted. Safety precautions in place.
--- NOTE | 2019-04-20 00:30 | NUR ---
Hygiene care Incontinence care provided. Patient tolerated well. No signs of distress noted. Safety precautions in place.
--- NOTE | 2019-04-20 02:30 | NUR ---
Sleeping No signs of distress noted. Breathing even and unlabored. IV patent and intact, infusing fluids. Safety precautions in place.
--- NOTE | 2019-04-20 04:30 | NUR ---
Hygiene care Incontinence care provided. Patient tolerated well. Safety precautions in place.
--- NOTE | 2019-04-20 06:46 | NUR ---
Closing notes Patient resting comfortably in bed. No signs of distress noted. Breathing even and unlabored. IV patent and intact. IJ intact. Jasso catheter and g-tube in place. All needs met throughout the shift. call light with the patient. Safety precautions in place. Will endorse care to day shift RN.
--- NOTE | 2019-04-20 08:00 | NUR ---
OPENING NOTE patient resting in bed awake, patient answers simple commands and questions, no acute distress or pain noted at this time, tubefeeding running at 40ml/hr with no residual, patient tolerating well with no aspiration or n/v, educated patient on plan of care and call light system, will continue to monitor, safety precautions in place, seizure precautions in place, call light within reach.
[2019-04-20 08:10] VITALS: BP_SYST 147
[2019-04-20] MEDS: DOCUSATE SODIUM 250 MG CAPSULE PO SCH (09:12)
[2019-04-20] MEDS: LACTULOSE 20 GM/30 ML UDC PO SCH (09:12)
[2019-04-20] MEDS: PHENobarbital 30 MG TABLET PO SCH (09:13)
[2019-04-20] MEDS: CITALOPRAM HYDROBROMIDE 20 MG TABLET PO SCH (09:13)
--- NOTE | 2019-04-20 10:20 | NUR ---
NOTES patient is resting in bed watching tv, no acute distress or pain is noted at this time, breathing is even and unlabored on room air, tubefeeding running as ordered, no signs of aspiration noted, will continue to monitor, safety precautions in place, call light within reach.
[2019-04-20 12:19] VITALS: BP_SYST 163
--- NOTE | 2019-04-20 12:23 | NUR ---
NOTES patient is resting in bed with eyes closed, no signs of aspiration noted, breathing is even and unlabored on room air, no acute distress or pain is noted at this time, will continue to monitor, safety precautions in place, call light within reach.
--- NOTE | 2019-04-20 14:55 | NUR ---
NOTES patient turned and repositioned for comfort, patient denies any acute distress or pain at this time, breathing is even and unlabored on room air, IVF infusing as ordered, will continue to monitor, tube feeding running as ordered, will continue to monitor, safety precautions in place, call light within reach.
[2019-04-20] MEDS: VANCOMYCIN HCL 750 MG in NS 250 ML IV SCH (16:08)
--- NOTE | 2019-04-20 16:33 | NUR ---
DR TONG AND KANNAN MADE AWARE of sodium level 148 and IVF of NS as 100, new orders received.
[2019-04-20 17:00] VITALS: BP_SYST 152
[2019-04-20] MEDS: cefTRIAXone 1 GM in D5W 50 ML IV SCH (18:15)
--- NOTE | 2019-04-20 18:34 | NUR ---
CLOSING NOTE patient resting in bed with eyes closed, no acute distress or pain is noted, tubefeeding running as ordered with no signs of aspiration or n/v, all needs were met throughout shift, will endorse report to oncoming nurse, safety precautions in place, seizure precautions in place, call light within reach.
--- NOTE | 2019-04-20 19:45 | NUR ---
Opening notes Received report. Patient resting comfortably in bed. Patient had small soft, brown stool. Hygiene care provided. Patient turned and repositioned. Dr. Villarreal has not spoken with family and will try to contact family. Surgery for tomorrow 04/21/19, no scheduled time yet. Safety precautions in place.
[2019-04-20 20:29] VITALS: BP_SYST 163
[2019-04-20] MEDS: hydrALAZINE HCL 20 MG/ML VIAL IVP PRN (20:35)
[2019-04-20] MEDS: traZODone HCL 50 MG TABLET (DESYREL) PO SCH (20:36)
--- NOTE | 2019-04-20 20:47 | NUR ---
Medications given via g-tube. 5 ml residual noted. G-tube flushes easily. Educated the action and side effects of medications. Patient nods head and tolerated well. Safety precautions in place.
--- NOTE | 2019-04-21 | NUR ---
NPO Feeding turned off and g-tube flushed.
[2019-04-21 00:40] VITALS: BP_SYST 139
--- NOTE | 2019-04-21 02:00 | NUR ---
Resting No signs of distress noted. Breathing even and unlabored. Patient repositioned to comfort. Safety precautions in place.
--- NOTE | 2019-04-21 04:00 | NUR ---
Sleeping No signs of distress noted. Breathing even and unlabored. Safety precautions in place.
[2019-04-21 06:59] LABS: BASOPHILS # (AUTO) 0.1 K/uL (0.0-0.2); BASOPHILS % (AUTO) 0.7 % (0.0-2.0); EOSINOPHILS # (AUTO) 0.2 K/uL (0.0-0.4); EOSINOPHILS % (AUTO) 1.6 % (0.0-4.0); HEMATOCRIT 28.1 % (36-54); HEMOGLOBIN 9.3 g/dL (14.0-18.0); LYMPHOCYTES # (AUTO) 0.5 K/uL (1.0-5.5); LYMPHOCYTES % (AUTO) 4.1 % (20.5-51.5); MEAN CORPUSCULAR HEMOGLOBIN 30 pg (27-31); MEAN CORPUSCULAR HGB CONC 33 % (32-36); MEAN CORPUSCULAR VOLUME 91 fL (79.0-98.0); MONOCYTES # (AUTO) 0.5 K/uL (0.0-1.0); MONOCYTES % (AUTO) 4.4 % (1.7-9.3); NEUTROPHILS # (AUTO) 11.1 K/uL (1.8-7.7); NEUTROPHILS % (AUTO) 89.2 % (40.0-70.0); PLATELET COUNT (AUTO) 267 K/uL (130-430); RED BLOOD CELL COUNT(AUTO) 3.11 MIL/uL (4.2-6.2); WHITE BLOOD COUNT (AUTO) 12.5 K/uL (4.8-10.8)
[2019-04-21 07:10] LABS: ALANINE AMINOTRANSFERASE 75 U/L (12-78); ALBUMIN 2.2 g/dL (3.4-4.8); ANION GAP 12 (5-15); ASPARTATE AMINOTRANSFERASE 38 U/L (10-37); CALCIUM 8.2 mg/dL (8.4-11.0); CHLORIDE 117 mmol/L (98-107); CREATININE 3.88 mg/dL (0.55-1.30); GLUCOSE 122 mg/dL (70-99); SODIUM SERUM 153 mmol/L (136-145); TOTAL BILIRUBIN 0.7 mg/dL (0.0-1.0); UREA NITROGEN, BLOOD 77 mg/dL (8-21)
[2019-04-21 07:14] LABS: POTASSIUM 2.9 mmol/L (3.5-5.1)
--- NOTE | 2019-04-21 07:20 | NUR ---
Closing notes Patient resting in bed. No signs of distress noted. Breathing even and unlabored. NPO status maintained. All needs met throughout the shift. Call light with the patient. Safety precautions in place. Will endorse care to day shift RN.
--- NOTE | 2019-04-21 07:22 | NUR ---
ATTENDING MD DR BRUNNER WAS PAGED, RE: CRITICAL LAB K LEVEL. SPOKE TO
--- NOTE | 2019-04-21 07:22 | NUR ---
Sleeping No signs of distress noted. Breathing even and unlabored. Safety precautions in place.
[2019-04-21] MEDS ORDERED: POTASSIUM CHLORIDE 20 MEQ TAB.PRT.SR PO ONE (07:45)
--- NOTE | 2019-04-21 07:50 | NUR ---
opening note patient is resting in bed, patient does not give me a verbal response but eyes are open and is responding to simple commands, assessment completed, educated disease intervention specialist light system and plan of care, no verbal response, IV site clean and intact, hardin in place, g tube intact, NPO for surgery today, no other needs at this time, fall/safety and seizure precautions in place.
[2019-04-21 08:00] VITALS: BP_SYST 150
[2019-04-21] MEDS ORDERED: POTASSIUM CHLORIDE 40 MEQ in NS 250 ML IV ONE (08:00)
--- NOTE | 2019-04-21 08:28 | NUR ---
CHUNG HYATT Called OR and spoke with Aaliyah. Per Aaliyah, Dr Villarreal did not call to schedule patient for surgery. Called Dr Villarreal. Dr harden is chief telephone operator at this time. Exchanged advised market news reporter to call after 9 am to get to Dr Villarreal Addendum: 04/21/19 at 0830 by Amrik Mcdermott RN JIM Tavarez made aware of above
[2019-04-21] MEDS: DOCUSATE SODIUM 250 MG CAPSULE PO SCH (09:00)
[2019-04-21] MEDS: CITALOPRAM HYDROBROMIDE 20 MG TABLET PO SCH (09:00)
[2019-04-21] MEDS: PHENobarbital 30 MG TABLET PO SCH (09:00)
[2019-04-21] MEDS: LACTULOSE 20 GM/30 ML UDC PO SCH (09:00)
--- NOTE | 2019-04-21 09:36 | NUR ---
k-dur and k-rider patient resting in bed, patient's potassium was 2.9 and medications were given, patient tolerated well, no other needs at this time, fall/safety precaution and seizure precautions in place.
[2019-04-21 12:21] VITALS: BP_SYST 158
[2019-04-21] MEDS: D5W 1,000 ML IV SCH ×2 (12:42→23:03)
--- NOTE | 2019-04-21 12:42 | NUR ---
D5W bag hung patient resting in bed, per Dr Miller patient needs to be on fluids, fluids hung, no other needs at this time, fall/safety and seizure precautions in place.
[2019-04-21] MEDS: VANCOMYCIN HCL 750 MG in NS 250 ML IV SCH (15:54)
--- NOTE | 2019-04-21 16:00 | NUR ---
scheduled vancomycin patient resting in bed, educated on medication use and side effects, patient tolerated well, no other needs at this time, fall/safety precaution and seizure precautions in place.
[2019-04-21 16:30] VITALS: BP_SYST 143
[2019-04-21 17:00] VITALS: BP_SYST 164
--- NOTE | 2019-04-21 17:25 | NUR ---
patient off unit to OR
[2019-04-21] MEDS ORDERED: LR 1,000 ML IV SCH (18:41)
[2019-04-21] MEDS ORDERED: HYDROmorphone 2 MG/ML VIAL IVP PRN ×2 (18:45)
[2019-04-21] MEDS ORDERED: MEPERIDINE HCL/PF 25 MG/ML DISP.SYRIN IVP PRN (18:45)
[2019-04-21] MEDS ORDERED: HYDROmorphone 1 MG INJ. 1 MG/ML AMPUL IVP PRN (18:45)
--- NOTE | 2019-04-21 19:00 | NUR ---
report given to [facility] shift nurse Olvin.
--- NOTE | 2019-04-21 19:00 | NUR ---
change of shift.pt.not presents.pt.in surgery;;orif;lt.humerus.
[2019-04-21] MEDS ORDERED: POLYMYXIN 500,000/BACIT.10,000 UNITS in NS IRR 1 L IR ONE (19:10)
--- NOTE | 2019-04-21 20:00 | NUR ---
grisel.has not presented self.2/t surgery;in progress.
[2019-04-21 22:00] VITALS: BP_SYST 152
[2019-04-21] MEDS ORDERED: CEFAZOLIN 1 GM IVPB PREMIX 50 ML IV SCH (22:00)
--- NOTE | 2019-04-21 22:00 | NUR ---
pt.has returned to the unit;room.pt.presents stable status.pt.presents dsg;lt.deltoid;bicept;intact.pt.presents sling.pt.presents post-op fluids;iv.infusing via peripheral line.pt.presents g-tube:locked,report post op provided per surgical nsg;page;i;rn.v/s initiated per post-op protocol.pt.repositioned.pt.presents hardin catheter.pt.presents scd's applied.pt.presents rt.svc;line;w/pig-tail.dsg intact. i have posted nsg/pt.alert sign;lt.arm;fx.above hob.pt.asphasic;non-verbal to utilize flacc method;pain mgx.
--- NOTE | 2019-04-21 22:30 | NUR ---
i have reviewed the post-op orders;dr.hanes mercer;re;order;rocephine x2 dose:pain mgx medications frequency;post-op frequencies.to clarify.i have attended to the iv fluids;pre-op;d5w@120ml/hr.i have continued the g-tube feed;nephro:@ 40/ml hr.
--- NOTE | 2019-04-21 23:00 | NUR ---
pt.assessed.pt.v/s assessed;in progress;post -op frequency.values w/in normal limits.awaiting 's return call. pt.assessed for cleanliness.i have assessed the iv access;intact;patent.i have assessed the g-tube;intact;patent; g-tube feed infusing.pt.repositioned.call light/telephone placed w/in the reach of the pt.
[2019-04-21] MEDS: traZODone HCL 50 MG TABLET (DESYREL) PO SCH (23:14)
--- NOTE | 2019-04-21 23:30 | NUR ---
i have administered trazodone/tegretol per the g-tube;patent;absent resistance.
[2019-04-22] VITALS (7 sets, daily range): BP systolic 134–163
--- NOTE | 2019-04-22 | NUR ---
PAGED PAGING DR. ALFORD, BAG PATCHER- DR. BUSTOS, FOR ORDERS SPOKE WITH CATHY.
--- NOTE | 2019-04-22 | NUR ---
pt.assessed.pt.assessed for cleanliness.pt.repositioned.i have assessed the dsg;lt.deltoid;intact.i have assessed the g-tube;intact;patent;g-tube feed;infusing.i have assessed the iv access;intact;patent.iv fluids infusing.general status stable.respiratory status stable.call light/telephone placed w/in the reach of the pt.:rt.side;hand.
[2019-04-22] MEDS ORDERED: ACETAMINOPHEN 500 MG TABLET PO PRN (01:15)
[2019-04-22] MEDS ORDERED: HYDROcodone/ACETAMIN 5-325 MG TAB (NORCO/ VICODIN) PO PRN (01:15)
--- NOTE | 2019-04-22 01:27 | NUR ---
PAGED PAGING DR. BUSTOS, SPOKE WITH CATYH
--- NOTE | 2019-04-22 01:59 | NUR ---
pt.assessed.pt.assessed for cleanliness.pt.repositioned.i have assessed the dsg;lt.deltoid intact.i have assessed the g-tube intact;patent;g-tube feed infusing.i have assessed the iv acces ;intact;patent.iv fluids infusing.general status stable.respiratory status stable.call light/telephone placed w/in the reach of the pt.rt.side;hand.
[2019-04-22] MEDS: CEFAZOLIN SODIUM 500 MG in D5W 50 ML IV SCH ×2 (02:15→14:08)
[2019-04-22] MEDS: D5W 1,000 ML IV SCH ×2 (02:55→08:55)
[2019-04-22] MEDS ORDERED: ceFAZolin SODIUM 1 GM VIAL ONE (03:09)
--- NOTE | 2019-04-22 04:00 | NUR ---
pt.assessed.pt.present quiescent affect;calm,somnolent.i have assessed the dsg;lt.deltoid;drainage;sanguinous;scant.intact. i have assessed the rt.svc;central line;intact.i have assd tg-tube ffed;inatct;patent;g-tube feed infusing.pt.assessed for cleanliness. pt.repositioned.i have assessed the hardin catheter;intact;patent;urine content present.call light/telephone placed w/in the reach of the pt.rt.side;hand.
--- NOTE | 2019-04-22 06:11 | NUR ---
pt.assessed.pt.has been assessed for cleanliness.pt.changed,pt.repositioned.i have weighed the pt;2/t hemo-dialysis. i have assessed the dsg;lt.deltoid;intact;drainage;sanguinous;scant.sling in place.i have assessed the g-tube;intact; patent g-tube feed infusing.i have assessed the hardin catheter;intact;patent;urine content presents.general status stable. respiratory statu stable.call light/telephone placed w/in the reach of the pt:rt.side;hand.i have cleaned the g-tube insertion site.i have placed a clean dsg upon the g-tube insertion site.
--- NOTE | 2019-04-22 07:25 | NUR ---
OPENING NOTE Patient resting in the bd. No acute distress. No s/s of pain at this time. Skin warm and dry to touch. IV intact to right wrist, no redness, no swelling, no drainage. On D5 W at 120ml/hr, infusing well. GT intact, on Nepro at 40ml/hr. HOB elevated. F/C intact, drain gravity with yellow urine. On s/p ORIF on left humerus, surgical dressing intact to left deltoid. No active bleeding noted. Safety measure maintained. Call light within reached. Bed locked in low position, side rails up, bed alarm on. Will continue to monitor.
[2019-04-22 07:28] LABS: BASOPHILS # (AUTO) 0.1 K/uL (0.0-0.2); BASOPHILS % (AUTO) 0.5 % (0.0-2.0); EOSINOPHILS # (AUTO) 0.1 K/uL (0.0-0.4); EOSINOPHILS % (AUTO) 1.1 % (0.0-4.0); HEMATOCRIT 25.1 % (36-54); LYMPHOCYTES # (AUTO) 0.8 K/uL (1.0-5.5); LYMPHOCYTES % (AUTO) 6.1 % (20.5-51.5); MEAN CORPUSCULAR HEMOGLOBIN 30 pg (27-31); MEAN CORPUSCULAR HGB CONC 32 % (32-36); MEAN CORPUSCULAR VOLUME 92 fL (79.0-98.0); MONOCYTES # (AUTO) 0.6 K/uL (0.0-1.0); NEUTROPHILS # (AUTO) 11.3 K/uL (1.8-7.7); NEUTROPHILS % (AUTO) 87.3 % (40.0-70.0); PLATELET COUNT (AUTO) 249 K/uL (130-430); RED BLOOD CELL COUNT(AUTO) 2.72 MIL/uL (4.2-6.2); RED CELL DISTRIBUTION WIDTH 15.6 % (9.0-15.0)
[2019-04-22 07:45] LABS: ALANINE AMINOTRANSFERASE 77 U/L (12-78); ANION GAP 12 (5-15); ASPARTATE AMINOTRANSFERASE 44 U/L (10-37); CALCIUM 7.7 mg/dL (8.4-11.0); CHLORIDE 116 mmol/L (98-107); CREATININE 3.64 mg/dL (0.55-1.30); GLUCOSE 115 mg/dL (70-99); POTASSIUM 3.6 mmol/L (3.5-5.1); SODIUM SERUM 153 mmol/L (136-145); TOTAL BILIRUBIN 0.5 mg/dL (0.0-1.0); UREA NITROGEN, BLOOD 69 mg/dL (8-21)
[2019-04-22] MEDS: LACTULOSE 20 GM/30 ML UDC PO SCH (08:51)
[2019-04-22] MEDS: CITALOPRAM HYDROBROMIDE 20 MG TABLET PO SCH (08:51)
[2019-04-22] MEDS: DOCUSATE SODIUM 250 MG CAPSULE PO SCH (08:51)
[2019-04-22] MEDS: PHENobarbital 30 MG TABLET PO SCH (08:52)
--- NOTE | 2019-04-22 08:55 | NUR ---
SCHEDULE MED GIVEN Patient resting in the bed. No acute distress. HOB elevated. GT feeding tolerated well. IV intact, IVF infusing well. F/C intact, drain gravity. Safety measure maintained. Call light within reached. Bed locked in low position, padded side rails up, bed alarm on. Continue to monitor.
--- NOTE | 2019-04-22 10:55 | NUR ---
ROUND Patient resting in the bed. No acute distress. Continue on GT feeding. HOB elevated. IV intact, IVF infusing well. F/C intact, drain gravity. Safety measure maintained. Call light within reached. Bed locked in low position, padded side rails up, bed alarm on. Continue to monitor.
--- NOTE | 2019-04-22 12:00 | NUR ---
CALLED DR. HOFFMAN REGARDING THE DIALYSIS Called Dr. Hoffman (educational aid for Dr. Miller), reported to Dr. Hoffman, the patient creatine =3.[address] Miller's note yesterday, if the patient creatine down to 2.0 and sure no more dialysis then may remove Berry catheter. And Dr. Mccarty in the floor and wants to transfer patient back to SNF. Dr. Hoffman stated "the patient creatine level still high that means still need dialysis". However, Dr. Parikh got the phone and talked to Dr. Hoffman.
--- NOTE | 2019-04-22 12:05 | NUR ---
SEEN AND EXAMINED BY AUTUMN RENDON WITH DISCHARGE ORDER Per Dr. Parikh, patient discharge with Berry catheter and the SNF with arrange the outpatient dialysis on Wednesday. Per Dr. Parikh, he already talked to [facility] will accept the patient back to the SNF.
--- NOTE | 2019-04-22 12:42 | NUR ---
DC PLANNING: CM SPOKE WITH LIZ ( WINDING INSPECTOR @ [facility] PATIENT IS ACCEPTED BACK AND ROOM NUMBER IS 30. TRANSPORTATION HAS BEEN SETUP WITH [facility] @ . SPOKE WITH CHITO (DISPATCH) AND PEDIATRIC CRITICAL CARE NURSE TIME IS AT 6PM. CM ATTEMPTED TO CONTACT PATIENT'S SISTER (MOUNIKA CRABTREE) @ . HOWEVER, PHONE WAS UNAVAILABLE. CM LEFT A VOICE MESSAGE. CM CONTACTED PATIENT'S BROTHER (AZEEM) @ REGARDING DC BACK TO [facility] PATIENT'S BROTHER WAS AGREEABLE TO THE DC.
--- NOTE | 2019-04-22 15:22 | NUR ---
SEEN AND EXAMINED BY JACQUES LEONARD WITH ORDER TO REMOVE GWEN CATHETER BY HD NURSE PRIOR DISCHARGE Per Dr. Arroyo just talked to Dr. Parikh and will remove Gwen catheter by HD nurse prior discharge.
--- NOTE | 2019-04-22 15:53 | NUR ---
GWEN CATHETER REMOVED: JOJO, A HD NURSE, HAS REMOVED RIGHT SUBCLAVIAN GWEN CATHETER AT BEDSIDE WITH COMPLETE TIP AND NO RESISTANCE. PRESSURE DRESSING WAS APPLIED , AND NO SIGN OF BLEEDING. WILL CONTINUE MONITOR.
[2019-04-22] MEDS: VANCOMYCIN HCL 750 MG in NS 250 ML IV SCH (15:57)
[2019-04-22] MEDS: cloNIDine HCL 0.1 MG TABLET PO PRN (16:56)
--- NOTE | 2019-04-22 16:56 | NUR ---
DK=[id number] Clonidine 0.1mg via GT given as ordered. No acute distress. Safety measure maintained. Call light within reached. Bed locked in low position, padded side rails up, bed alarm on. Continue to monitor.
--- NOTE | 2019-04-22 17:40 | NUR ---
ROUND Patient resting in the bed. No acute distress. HOB elevated. Continue on GT feeding. IV intact, IVF infusing well. F/C intact, drain gravity. No bleeding noted on right IJ area for s/p Berry catheter removal, covered with clean and dry dressing. Safety measure maintained. Call light within reached. Bed locked in low position, padded side rails up, bed alarm on. Continue to monitor.
--- NOTE | 2019-04-22 19:06 | NUR ---
PT TRANSFERRED Report given to OFE Green at 1840. Transfer packet with Transfer Orders and Medication Reconciliation form given to EMT with report. Exitcare provided. SD[facility] ID band removed, replaced with ID band with pt's name and . IV catheter removed, intact and dressing applied, no active bleeding. All belongings sent with patient. Patient left floor via gurney escorted by EMT in no distress.
== END 2019-04-22 19:06 | DRG 853 ==
LOC: STU 16:17 → SMU 04-17 18:16
PROVIDERS: ADMIT Family Medicine; ATTEND Family Medicine
PROC: 02HV33Z Insertion of Infusion Device into Superior Vena Cava, Percutaneous Approach (ICD-10-PCS; 2019-04-16)
PROC: B548ZZA Ultrasonography of Superior Vena Cava, Guidance (ICD-10-PCS; 2019-04-16)
PROC: 30233N1 Transfusion of Nonautologous Red Blood Cells into Peripheral Vein, Percutaneous Approach (ICD-10-PCS; 2019-04-17)
PROC: 4A00X4Z Measurement of Central Nervous Electrical Activity, External Approach (ICD-10-PCS; 2019-04-17)
PROC: 0DH63UZ Insertion of Feeding Device into Stomach, Percutaneous Approach (ICD-10-PCS; principal; 2019-04-19 07:30)
PROC: 0PSG04Z Reposition Left Humeral Shaft with Internal Fixation Device, Open Approach (ICD-10-PCS; 2019-04-21)
DX: A41.9 Sepsis, unspecified organism (principal); E43 Unspecified severe protein-calorie malnutrition; G93.41 Metabolic encephalopathy; K72.00 Acute and subacute hepatic failure without coma; J69.0 Pneumonitis due to inhalation of food and vomit; N17.0 Acute kidney failure with tubular necrosis; S42.302A Unspecified fracture of shaft of humerus, left arm, initial encounter for closed fracture; N39.0 Urinary tract infection, site not specified; R47.01 Aphasia; D64.9 Anemia, unspecified; E11.22 Type 2 diabetes mellitus with diabetic chronic kidney disease; E86.0 Dehydration; E87.5 Hyperkalemia; F03.90 Unspecified dementia, unspecified severity, without behavioral disturbance, psychotic disturbance, mood disturbance, and anxiety; K59.00 Constipation, unspecified; F32.9 Major depressive disorder, single episode, unspecified; B96.1 Klebsiella pneumoniae [K. pneumoniae] as the cause of diseases classified elsewhere; G40.909 Epilepsy, unspecified, not intractable, without status epilepticus; I12.9 Hypertensive chronic kidney disease with stage 1 through stage 4 chronic kidney disease, or unspecified chronic kidney disease; N18.9 Chronic kidney disease, unspecified; R13.10 Dysphagia, unspecified; W18.39XA Other fall on same level, initial encounter; Y93.89 Activity, other specified; Y92.89 Other specified places as the place of occurrence of the external cause; Y99.8 Other external cause status; Z86.73 Personal history of transient ischemic attack (TIA), and cerebral infarction without residual deficits; Z68.21 Body mass index [BMI] 21.0-21.9, adult
CPT/HCPCS: 36415; 43246; 70450-TC; 71045; 73030; 73060-TC; 74018; 76001; 76700-TC; 80048; 80053; 80074; 80156-TC; 80184-TC; 80202-TC; 81000-TC; 82140-TC; 83540-TC; 83550-TC; 84484; 85025; 85610-TC; 85730-TC; 86886; 86900; 86901; 86920; 87081; 87086; 87186-TC; 90935; 90937; 92610-GN; 93005; 95816; C1713; C1751; G0378; J0360; J0690; J0696; J1644; J2250; J3010; J3370; J3480; J7030; J7040; J7050; J7060; P9021

== ENCOUNTER 2023-01-21 11:30 | Emergency (ER) | payer OTHER, MEDICAID ==
[~2023-01-21] VITALS: Ht 167.6 cm; Wt 65.8 kg
[~2023-01-21 11:30] MED LIST: CARB100T13 PO; DOCU250C14 PO; ESCI10TA PO; FERR-69 PO; PHEN30TA49 PO; TRAZ-250 PO
--- NOTE | 2023-01-21 11:36 | NUR ---
Patient to ER bed 05 to gown for evaluation. Side rails up.
[2023-01-21 11:49] VITALS: BP_SYST 165
--- NOTE | 2023-01-21 11:50 | NUR ---
PT RECEIVED, CARE ASSUMED. PT BIB EMS FOR EVALUATION OF RIGHT HAND SWELLING. PT IS OBTUNDED, UNABLE TO ANSWER QUESTIONS. NO PAIN NOTED: FLACC. DR LÓPEZ AT BEDSIDE.
[2023-01-21] MEDS ORDERED: KETOROLAC TROMETHAMINE 30 MG VIAL IVP ONE (12:15)
--- NOTE | 2023-01-21 13:00 | NUR ---
INSERTED IN AND OUT CATH, COLLECTED URINE SAMPLE.
[2023-01-21 13:03] LABS: BASOPHILS % (AUTO) 0.5 % (0.0-2.0); EOSINOPHILS # (AUTO) 0.5 K/uL (0.0-0.4); EOSINOPHILS % (AUTO) 7.6 % (0.0-4.0); HEMATOCRIT 29.3 % (36-54); HEMOGLOBIN 9.9 g/dL (14.0-18.0); LYMPHOCYTES # (AUTO) 1.1 K/uL (1.0-5.5); LYMPHOCYTES % (AUTO) 17.4 % (20.5-51.5); MEAN CORPUSCULAR HEMOGLOBIN 31 pg (27-31); MEAN CORPUSCULAR HGB CONC 34 % (32-36); MEAN CORPUSCULAR VOLUME 92 fL (79.0-98.0); MONOCYTES # (AUTO) 0.8 K/uL (0.0-1.0); MONOCYTES % (AUTO) 12.1 % (1.7-9.3); NEUTROPHILS % (AUTO) 62.4 % (40.0-70.0); PLATELET COUNT (AUTO) 235 K/uL (130-430); RED CELL DISTRIBUTION WIDTH 13.3 % (9.0-15.0); WHITE BLOOD COUNT (AUTO) 6.4 K/uL (4.8-10.8)
[2023-01-21 13:05] LABS: BILIRUBIN,URINE NEGATIVE (NEGATIVE); BLOOD, URINE 1+ (NEGATIVE); CLARITY/URINE CLEAR (CLEAR); COLOR,URINE YELLOW (YELLOW); GLUCOSE,URINE NEGATIVE (NEGATIVE); KETONES,URINE NEGATIVE (NEGATIVE); LEUKOCYTE ESTERASE ,URINE NEGATIVE (NEGATIVE); NITRITE, URINE NEGATIVE (NEGATIVE); PROTEIN URINE NEGATIVE (NEGATIVE); UROBILINOGEN,URINE 0.2 (0.2-1.0)
[2023-01-21 13:22] LABS: ANION GAP 8 (5-15); CALCIUM 8.7 mg/dL (8.4-11.0); CHLORIDE 102 mmol/L (98-107); CREATININE 1.39 mg/dL (0.55-1.30); GLUCOSE 92 mg/dL (70-99); UREA NITROGEN, BLOOD 45 mg/dL (8-21)
[2023-01-21 13:29] LABS: ALANINE AMINOTRANSFERASE 39 U/L (12-78); ALBUMIN 3.3 g/dL (3.4-4.8); ASPARTATE AMINOTRANSFERASE 30 U/L (10-37); TOTAL BILIRUBIN 0.3 mg/dL (0.0-1.0)
[2023-01-21 13:30] LABS: BACTERIA,URINE None Seen /HPF (None Seen); WBC,URINE NONE SEEN /HPF (0-3)
[2023-01-21] MEDS ORDERED: ACET325T PO (14:37)
[2023-01-21] MEDS ORDERED: ZIT250 PO (14:37)
[2023-01-21] MEDS ORDERED: CEPH-548 PO (14:37)
--- NOTE | 2023-01-21 19:25 | NUR ---
Received report from JIM Valencia; assuming care of patient at this time.
--- NOTE | 2023-01-21 19:33 | NUR ---
Patient A/Ox3, bedbound at baseline, resp even and unlabored. Skin warm, dry, intact, color wnl for ethnicity. Patient is nonverbal but is able to give phyiscal feedback when asked questions by nodding head. Patient resting comfortably in bed with safety precautions in place. Nad noted at this time.
--- NOTE | 2023-01-21 20:45 | NUR ---
Received call from medic 1 who stated that new ETA is approx 2200.
--- NOTE | 2023-01-21 22:00 | NUR ---
Patient resting comfortably in bed with safety precautions in place. Patient A/Ox4, VSS, resp even and unlabored. Nad noted at this time.
--- NOTE | 2023-01-22 00:36 | NUR ---
Patient given written and verbal discharge instructions and verbalizes understanding. ER MD discussed with patient the results and treatment provided. Patient in stable condition. ID arm band removed. Rx of ACETAMINOPHEN AND ZITHROMAX given. Patient educated on pain management and to follow up with PMD. Pain Scale 0/10. Opportunity for questions provided and answered. Medication side effect fact sheet provided. PATIENT ACCOMPANIED BY [facility] AND IN STABLE CONDITION UPON DISCHARGE.
[2023-01-22] MEDS ORDERED: cloNIDine HCL 0.1 MG TABLET ONE (00:51)
[2023-01-22] MEDS ORDERED: cloNIDine HCL 0.1 MG TABLET PO ONE (01:00)
[2023-01-22 01:29] VITALS: BP_SYST 147
== END 2023-01-22 01:29 ==
LOC: SED 11:30
DX: J18.1 Lobar pneumonia, unspecified organism (principal); R31.9 Hematuria, unspecified; R60.9 Edema, unspecified; D64.9 Anemia, unspecified; I10 Essential (primary) hypertension; N17.9 Acute kidney failure, unspecified; Z79.899 Other long term (current) drug therapy
CPT/HCPCS: 36415; 71045; 74018; 80053; 81000; 83605; 83880; 84484; 85025; 87040; 87086; 93971; 99285